=== PATIENT | male | born 1985 | race Caucasian/White ===

== ENCOUNTER 2020-12-22 18:44 | Emergency (ER) | payer SELFPAY ==
[~2020-12-22] VITALS: Ht 175.3 cm; Wt 105.5 kg
--- NOTE | 2020-12-22 19:12 | PHYS DOC ---
Past History Past Medical History: No Pertinent History Past Medical History Cellulitis and abscess of groin-2016 Past Surgical History: No Surgical History Smoking: Cigarettes Alcohol Use: Occasionally Drug Use: None General Adult EDM: Chief Complaint: SKIN PROBLEM HPI: HPI: "..I ve had this before.. a few years ago..it is not quite as big..." "It on my Lt butt area..." Patient is a 35 year old male who presents with above hx and complaints of cellulitis /abscess Lt. glulteal area. There is an area that is inflamed at his left gluteal crease. There is no formed abscess currently. But there is overlying area of cellulitis. There is no adenopathy. Patient denies any history immunosuppression. Patient does not remember his last tetanus. Patient does smoke cigarettes. No recent travel. No specific ill contacts. Review of Systems: Review of Systems: Constitutional: Denies fever or chills Eyes: Denies change in visual acuity HENT: Denies nasal congestion or sore throat Respiratory: Denies cough or shortness of breath Cardiovascular: Denies chest pain or edema GI: Denies abdominal pain, nausea, vomiting, bloody stools or diarrhea : Denies dysuria Musculoskeletal: Denies back pain or joint pain Integument: Complains of cellulitis versus abscess Neurologic: Denies headache, focal weakness or sensory changes Endocrine: Denies polyuria or polydipsia Lymphatic: Denies swollen glands Psychiatric: Denies depression or anxiety Family History: Family History: Diabetes with mother Current Medications: Current Meds: See nursing for home meds Allergies: Allergies: Allergies Coded Allergies Type Severity Reaction Last Updated Verified Penicillins Allergy Unknown SYNCOPE, HIVES 11/18/14 No Physical Exam: PE: Constitutional: Moderate acute distress, non-toxic appearance. [] HENT: Normocephalic, atraumatic, bilateral external ears normal, oropharynx moist, no oral exudates, nose normal. [] Eyes: PERRLA, EOMI, conjunctiva normal, no discharge. [] Neck: Normal range of motion, no tenderness, supple, no stridor. [] Cardiovascular:Heart rate regular rhythm, no murmur [] Lungs & Thorax: Bilateral breath sounds equal apex with scattered wheezes auscultation [] Abdomen: Bowel sounds normal, soft, no tenderness, no masses, no pulsatile masses. gLuteal crease cellulitis on the left Skin: Warm, dry, no erythema, gluteal crease cellulitis Back: No tenderness, no CVA tenderness. [] Extremities: No tenderness, no cyanosis, no clubbing, ROM intact, no edema. [] Neurologic: Alert and oriented X 3, normal motor function, normal sensory function, no focal deficits noted. [] Psychologic: Affect normal, judgement normal, mood normal. [] EKG: EKG: [] Radiology/Procedures: Radiology/Procedures: [] Heart Score: Risk Factors: Risk Factors: DM, Current or recent (<one month) smoker, HTN, HLP, family history of CAD, obesity. Risk Scores: Score 0 - 3: 2.5% MACE over next 6 weeks - Discharge Home Score 4 - 6: 20.3% MACE over next 6 weeks - Admit for Clinical Observation Score 7 - 10: 72.7% MACE over next 6 weeks - Early Invasive Strategies Course & Med Decision Making: Course & Med Decision Making Pertinent Labs and Imaging studies reviewed. (See chart for details) Glucose at bedside was 105. Apply moist salt compresses or Epson salt compresses 4 times a day. Massage area Polysporin 4 times a day. If abscess forms of any drainage. Take Bactrim DS twice a day. Follow-up primary care. Return if any concerns. Tetanus was updated. Impression: 1. Cellulitis 2. History of abscess same location several years back [] Dragon Disclaimer: Dragon Disclaimer: This electronic medical record was generated, in whole or in part, using a voice recognition dictation system. Departure Departure: Referrals: PCP,NO (PCP) Scripts Sulfamethoxazole/Trimethoprim (BACTRIM DS TABLET) 1 Each Tablet 1 TAB PO BID for abscess, cellulitis for 10 Days, #20 TAB 0 Refills Prov: FABIOLA RUBIO MD 12/22/20 Dragjose Disclaimer This chart was dictated in whole or in part using Voice Recognition software in a busy, high-work load, and often noisy Emergency Department environment. It may contain unintended and wholly unrecognized errors or omissions. FABIOLA RUBIO MD Dec 22, 2020 19:12
[2020-12-22 19:15] VITALS: BP 135/81
[2020-12-22] MEDS ORDERED: SULF1TAB24 PO (19:22)
[2020-12-22] MEDS ORDERED: SMZ/TMP 800/160MG TABLET. PO ONE (19:30)
[2020-12-22] MEDS ORDERED: TETANUS AND DIPHTHERIA TOX/PF 0.5 ML VIAL. VAX IM ONE (19:45)
== END 2020-12-22 19:52 | disposition home or self-care (01) ==
LOC: ER 18:44
DX: L03.317 Cellulitis of buttock (principal); F17.210 Nicotine dependence, cigarettes, uncomplicated; Z88.0 Allergy status to penicillin
CPT/HCPCS: 82947; 90471; 90714; 99283

== ENCOUNTER 2020-12-25 11:52 | Emergency (ER) | payer SELFPAY ==
[~2020-12-25] VITALS: Ht 175.3 cm; Wt 103.8 kg
[~2020-12-25 11:52] MED LIST: SULF1TAB24 PO
--- NOTE | 2020-12-25 12:09 | PHYS DOC ---
Past History Past Medical History: No Pertinent History Past Surgical History: No Surgical History Smoking: Cigarettes Alcohol Use: Occasionally Drug Use: None Adult General Chief Complaint Chief Complaint: SKIN PROBLEM HPI HPI Patient is a 35-year-old male presents to the emergency department with complaints of intermittent sore throat, feeling feverish with chills off and on, problems sleeping at night. Patient states this has been going on for the past 2 days since starting his antibiotic regimen for cellulitis of the left buttock. Patient states he was seen here on the night of 12/22/2020 and was diagnosed with cellulitis and started on Bactrim which she has been taking twice a day since 12/23/2020. Denies chest pain, shortness of breath, chest congestion, chest palpitations. Patient denies abdominal pain, nausea, vomiting, diarrhea. Patient states he does not have a sore throat at this time, does not feel feverish or chills at this time, denies headaches, denies any loss of taste or smell, denies muscle or body aches. Patient denies any other physical com plaints or physical concerns. Patient states he did not receive a flu immunization in 2019 and has not had a COVID-19 virus immunization. Patient states he has not had any COVID-19 virus exposures that he is aware of but does not wish to be checked for the COVID-19 virus today. Review of Systems Review of Systems 14 body systems of review of systems have been reviewed. See HPI for pertinent positives and negative responses, otherwise all other systems are negative, nonpertinent or noncontributory. Allergies Allergies Allergies Coded Allergies Type Severity Reaction Last Updated Verified Penicillins Allergy Unknown SYNCOPE, HIVES 12/25/20 No Physical Exam Physical Exam Constitutional: Well developed, well nourished, no acute distress, non-toxic appearance. HENT: Normocephalic, atraumatic, bilateral external ears normal, oropharynx moist, no oral exudates, nose normal. Oropharynx pink moist, no uvular edema appreciated, no peritonsillar abscess appreciated, no deep tissue infection appreciated, no tonsillar swelling or edema appreciated, no cobblestoning of the oropharynx appreciated, no postnasal drip. No lymphadenopathy of the head or neck. Eyes: PERRLA, EOMI, conjunctiva normal, no discharge. Neck: Normal range of motion, no tenderness, supple, no stridor. No nuchal r igidity, no meningismus signs Cardiovascular:Heart rate regular rhythm, no murmur, heart sounds S1-S2 auscu ltation. Lungs & Thorax: Bilateral breath sounds clear to auscultation all lung vick. Abdomen: Bowel sounds normal, soft, no tenderness, no masses, no pulsatile masses. Skin: Warm, dry, no erythema, no rash. Left buttocks gluteal fold at area of complaint cellulitis is without erythema, swelling, drainage, no central punctum, no abscess noted, no cellulitic signs appreciated. Back: No tenderness, no CVA tenderness. Extremities: No tenderness, no cyanosis, no clubbing, ROM intact, no edema. Neurologic: Alert and oriented X 3, normal motor function, normal sensory function, no focal deficits noted. Psychologic: Affect normal, judgement normal, mood normal. Current Patient Data Vital Signs Vital Signs Date Time Temp Pulse Resp B/P (MAP) Pulse Ox O2 Delivery O2 Flow Rate FiO2 12/25/20 11:52 98.9 96 18 126/85 (99) 95 Room Air EKG EKG [] Radiology/Procedures Radiology/Procedures [] Heart Score Risk Factors: Risk Factors: DM, Current or recent (<one month) smoker, HTN, HLP, family history of CAD, obesity. Risk Scores: Risk Factors: DM, Current or recent (<one month) smoker, HTN, HLP, family history of CAD, obesity. Course & Med Decision Making Course & Med Decision Making Pertinent Labs and Imaging studies reviewed. (See chart for details) 35-year-old male, vital signs reviewed, complaints of intermittent fever chills and sore throat with difficulty sleeping at night. Patient's physical exam was unremarkable. Patient is nontoxic in appearance and is in no apparent distress. Patient currently denies fever chills or sore throat. Patient is treating self at home stating he is taking 2 tablets of [id number] Advil twice a day. Patient states his last Advil dose was yesterday evening. Patient reports he is taking his antibiotics twice a day as directed. Offered patient COVID-19 testing, flu A/B testing, strep throat testing, patient denies need for these test. Discussed will trial patient with nighttime dose of hydroxyzine to take prior to going to bed to assist with sleeping. Patient is amenable to this plan. Patient gave verbal understanding of discharge home instructions, prescription use, follow-up with primary care for ongoing symptoms, return to the emergency department precautions and concerns, patient discharged home. Dragon Disclaimer Michelleon Disclaimer This electronic medical record was generated, in whole or in part, using a voice recognition dictation system. Departure Departure: Impression: Primary Impression: Insomnia Disposition: 01 DC HOME SELF CARE/HOMELESS Condition: GOOD Referrals: PCP,NO (PCP) Patient Instructions: Insomnia Additional Instructions: Please take medication as prescribed in the evening to assist with insomnia symptoms, follow-up with your primary care physician for ongoing symptoms and concerns, return to the emergency department for worsening symptoms or other concerns. EMERGENCY DEPARTMENT GENERAL DISCHARGE INSTRUCTIONS Thank you for coming to [facility] (ED) today and trusting us with you care. We trust that you had a positivie experience in our Emergency Department. If you wish to speak to the department management, you may call the director at [phone]. YOUR FOLLOW UP INSTRUCTIONS ARE FOLLOWS: 1. Do you have a private Doctor? If you do not have a private doctor, please ask for a resource list of physicians or clinics that may be able to assist you with follow up care. 2. The Emergency Physician has interpreted your x-rays. The X-Ray specialist will also review them. If there is a change in the findings, you will be notified in 48 hours when at all possible. 3. A lab test or culture has been done, your results will be reviewed and you will be notified if you need a change in treatment. ADDITIONAL INSTRUCTIONS AND INFORMATION: 1. Your care today has been supervised by a physician who is specially trained in emergency care. Many problems require more than one evaluation for a complete diagnosis and treatment. We recommend that you schedule your follow up appointment as recommended to ensure complete treatment of you illness or injury. If you are unable to obtain follow up care and continue to have a problem, or if your condition worsens, we recommend that you return to the ED. 2. We are not able to safely determine your condition over the phone nor are we able to give sound medical advice over the phone. For these safety reasons, if you call for medical advice we will ask you to come to the ED for further evaluation. 3. If you have any questions regarding these discharge instructions please call the ED at [phone]. SAFETY INFORMATION: In the interest of safety, wellness, and injury prevention; we encourage you to wear your sealbelt, if you smoke; quite smoking, and we encourage family to use a p rotective helmet for bicycling and other sporting events that present an increased risk for head injury. IF YOUR SYMPTOMS WORSEN OR NEW SYMPTOMS DEVELOP, OR YOU HAVE CONCERNS ABOUT YOUR CONDITION; OR IF YOUR CONDITION WORSENS WHILE YOU ARE WAITING FOR YOUR FOLLOW UP APPOINTMENT; EITHER CONTACT YOUR PRIMARY CARE DOCTOR, THE PHYSICIAN WHOSE NAME AND NUMBER YOU WERE GIVEN, OR RETURN TO THE ED IMMEDIATELY. Scripts Hydroxyzine Pamoate (HYDROXYZINE PAMOATE) 50 Mg Capsule 50 MG PO HS for INSOMNIA, #30 CAP 0 Refills TAKE 1 TABLET 30 TO 60 MINUTES PRIOR TO BEDTIME, MAY INCREASE TO 2 TABLETS IF NEEDED FOR INSOMNIA SYMPTOMS. Prov: RAMYA OJHNSON APRN 12/25/20 Problem Qualifiers Primary Impression: Insomnia Insomnia type: unspecified Qualified Codes: G47.00 - Insomnia, unspecified RAMYA JOHNSON APRN Dec 25, 2020 12:09
[2020-12-25] MEDS ORDERED: HYDR50CA2 PO (12:25)
[2020-12-25 12:42] VITALS: BP 129/78
== END 2020-12-25 12:47 | disposition home or self-care (01) ==
LOC: ER 11:52
DX: G47.00 Insomnia, unspecified (principal); J02.9 Acute pharyngitis, unspecified; F17.210 Nicotine dependence, cigarettes, uncomplicated; Z88.0 Allergy status to penicillin
CPT/HCPCS: 99283